=== PATIENT | female | born 1990 | race Caucasian/White ===

== ENCOUNTER 2018-11-03 19:02 | Observation (INO) | payer BC, SELFPAY ==
[2018-11-03 19:04] VITALS: BP 158/109; PULSE 101; RESP 18; O2SAT 100; BMI 28.1
--- NOTE | 2018-11-03 20:23 | ED.ABDPAIN ---
HPI - Abdominal Pain General Chief Complaint: Abdominal Pain Stated Complaint: lower abd/pelvic pain Time Seen by Provider: 11/03/18 20:23 Source: patient Mode of arrival: ambulatory Limitations: no limitations History of Present Illness HPI narrative: Patient is a 27-year-old female here for evaluation of bilateral lower abdominal pain. at the end of last month the patient had very similar symptoms and was seen at an outside facility. She stated that she had an ultrasound and a CT scan performed and was diagnosed with a right-sided ovarian cyst. She did have a copy of the visit report I was able to review the ultrasound which showed that the right ovary was 5.4 x 4.6 x 3.7 cm. It did have an adjacent cystic structure that was 3.8 x 3.6 x 3.0 cm. It was felt that this was a hemorrhagic cyst. Patient states that her symptoms did improve after that visit. She states that over the past couple days she had return of the symptoms. she does not have a primary care doctor. 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 Related Data Home Medications Medication Instructions Recorded Confirmed No Known Home Medications 11/04/18 11/04/18 Allergies Allergy/AdvReac Type Severity Reaction Status Date / Time No Known Drug Allergies Allergy Verified 11/03/18 19:03 Review of Systems Constitutional Denies fever(s) Cardiovascular Denies chest pain and Denies dyspnea Respiratory Denies dyspnea Gastrointestinal Gastrointestinal: Reports abdominal pain, Denies change in stool character, Reports nausea and Denies vomiting Genitourinary Denies dysuria and Denies vaginal discharge Musculoskeletal Denies myalgias and Denies arthralgias Integumentary/Breasts Denies rash Neurologic Denies behavioral changes Psychiatric Denies behavioral changes Hematologic/Lymphatic Denies easy bleeding and Denies easy bruising [facility] Medical History Ovarian cyst (Acute) Social History Smoking Status: Never smoker Social History Smoking Status: Never smoker Exam Initial Vital Signs Initial Vital Signs: Vital Signs Pulse Rate 101 H 11/03/18 19:04 Respiratory Rate 18 11/03/18 19:04 Blood Pressure 158/109 H 11/03/18 19:04 Pulse Oximetry 100 04/25/19 19:04 Const General: cooperative, comfortable, well developed, well groomed and No acute distress Orientation: alert, awake and oriented x3 HENMT Head: normal to inspection and normocephalic Resp Effort & Inspection: normal respiratory effort Auscultation: clear to auscultation bilaterally Cardio Rate: regular rate Rhythm: regular rhythm GI Inspection: non-distended Palpation: soft, No firm and tender (Bilateral lower abdomen left greater than right discomfort with some guardi) Back/Spine/Pelvis Back: No CVA tenderness Skin Lesions: no lesions Rashes: no rashes Neuro General: alert, awake and oriented x3 Cognition: normal cognition Speech: speech normal Extrem General: normal to inspection and capillary refill normal Psych Appearance: grossly normal and well kempt Course Orders Ordered: ED Orders 11/03/18 20:44 US pelvic complete Stat 11/03/18 22:32 Urine Culture Stat Urine Microscopic Stat 11/03/18 23:46 Consult to Physician Routine 11/03/18 23:50 Basic Metabolic Panel Stat Complete Blood Count AUTO DIFF Stat Sodium Chloride (Normal Saline 0.9%) 1,000 mls @ 125 mls/hr IV CONT LARRY Last Infusion: 11/04/18 00:55 Dose: 125 mls/hr Infusion: 11/04/18 00:35 Dose: 125 mls/hr Admin: 11/04/18 00:04 Dose: 125 mls/hr Morphine Sulfate (Morphine) 2 mg IV Q4HR PRN PRN Reason: Pain, Mild (1-3) Ondansetron HCl (Zofran) 4 mg IV Q4HR PRN PRN Reason: Nausea And Vomiting Discontinued Medications Hydrocodone Bitart/Acetaminophen ([place] 5/325) 1 tab PO NOW ONE Stop: 11/03/18 20:44 Last Admin: 11/03/18 20:54 Dose: 1 tab Vital Signs - 8 hr 11/03/18 19:04 11/03/18 22:23 11/03/18 23:26 Pulse Rate 101 H 88 82 Respiratory Rate 18 18 18 Blood Pressure 158/109 H Blood Pressure [Left Arm] 141/98 H 139/96 H Pulse Oximetry 100 100 100 MDM - Abdominal Pain Lab Data Attestation: I reviewed the patient's lab results. Result diagrams: 11/03/18 23:50 11/03/18 23:50 Lab Results 11/03/18 11/03/18 11/03/18 Range/Units 22:32 23:50 23:50 WBC 11.5 H (4.5-11.0) X10^3/uL RBC 4.08 (4.0-5.2) X10^6/uL Hgb 12.0 (12.0-16.0) g/dL Hct 36.1 (36-46) % MCV 88.5 (80-100) fL MCH 29.5 (26-34) PG MCHC 33.3 (30-36) % RDW 14.0 (11.6-14.8) % Plt Count 271 (150-400) X10^3/uL Neut % (Auto) 87.5 H (50-75) % Lymph % (Auto) 7.6 L (25-40) % Dickenson % (Auto) 4.5 (3-14) % Eos % (Auto) 0.1 L (2-4) % Baso % (Auto) 0.3 (0-2) % Neut # (Auto) 87987 H (3795-1653) /uL Lymph # (Auto) 900 L (9788-1482) /uL Dickenson # (Auto) 500 (0-900) /uL Eos # (Auto) 0 (0-450) /uL Baso # (Auto) 0 (0-100) /uL Sodium 138 (137-145) mmol/L Potassium 3.7 (3.4-5.1) mmol/L Chloride 101 (98-107) mmol/L Carbon Dioxide 25 (22-32) mmol/L BUN 10 (7-17) mg/dL Creatinine 0.70 (0.52-1.04) mg/dL Estimated GFR > 60.0 (>60) mL/min BUN/Creatinine Ratio 14.3 (6-22) Glucose 135 H (70-100) mg/dL Calcium 9.1 (8.4-10.2) mg/dL Urine RBC >100/hpf H (0-5/HPF) Urine WBC 0-1/hpf (0-5/HPF) Ur Squamous Epith Cells 1-5 /hpf (0-5/HPF) Urine Bacteria Few (2-10) H (None) Ur Culture Indicated? Specimen cultured Imaging Data US - abdomen: Radiologist's impression: Enlarged heterogeneous complex right ovary come in question dermoid cyst. Ovarian torsion resulting in enlargement and hemorrhage could have similar appearance. Large amount of free fluid and probable hemorrhagic fluid in the pelvis. [facility] Narrative Medical decision making narrative: Patient is relatively symptom-free with lying still on the bed however does have discomfort with palpation. She does seem to have left lower quadrant more than right lower quadrant symptoms. the patient's ultrasound today measures the right ovary at 5.5 x 4.2 x 5.5 cm. It does not distinguish between the ovary and the cyst today. The ultrasound today shows that the right ovary is heterogeneous and complex. Had a discussion with Dr. Lee who was on-call for OB. He did state that he would be happy to admit the patient for observation overnight and pain control to then be evaluated by load test mechanic in the morning. I had a discussion with the patient regarding this. Patient did agree to be admitted to the hospital. Discharge Plan Departure Patient Disposition: Admitted as Observation Clinical Impression: Abdominal pain Qualifiers: Abdominal location: lower abdomen, unspecified Qualified Code(s): R10.30 - Lower abdominal pain, unspecified Ovarian cyst Qualifiers: Laterality: right Qualified Code(s): N83.201 - Unspecified ovarian cyst, right side Discharge Date/Time: 11/04/18 00:36 Interventions: ED Discharge Assessment Last Done: 11/04/18 00:34 Admit Date/Time: 11/03/18 23:47 Admit Provider: Amadou Lee
--- NOTE | 2018-11-03 20:44 | DI.US.S_ITS ---
PROCEDURE: US PELVIC COMPLETE INDICATIONS: LEFT LOWER QUADRANT PAIN, ABDOMINAL PAIN, CONCERN FOR OVARIA TECHNIQUE: Real-time scanning was performed of the pelvic organs, with image documentation. Additional endovaginal scanning was necessary due to incomplete visualization of the adnexal and endometrial structures by transabdominal scanning. COMPARISON: None. FINDINGS: Transabdominal scanning: Limited scanning through the kidneys shows no hydronephrosis. There is a moderately large amount of echogenic free pelvic fluid extending bilaterally. Incidental note is made of a possible 5 mm stone at the inferior third of the right kidney. Endovaginal scanning: Uterus: Uterus is normal in size at 3.0 x 4.5 x 7.3 cm. The endometrium measures 4.0 mm in combined thickness. No uterine fibroids are found. Ovaries: The right ovary is enlarged at 5.5 x 4.2 x 5.5 cm, much of which appears to represent a complex cystic or solid mass with a hyperechoic internal content, with potential for hemorrhagic content or dermoid tumor as the underlying cause. The left ovary measures 1.9 x 2.7 x 2.2 cm. IMPRESSION: The findings discussed above are complex and warrants gynecological consultation. The amount and nature of the free fluid present raises concern for presence of hemoperitoneum or possibly rupture of a complex adnexal cyst/dermoid related cyst which can produce peritoneal symptoms. The patient reports having been evaluated previously at [facility] approximately 1 month ago and was told that there was a complex ovarian cyst present but images or a report from that study is not available for review. The prior study should be obtained to compare to the current examination. There is a large complex solid and cystic masslike structure the right adnexa and a normal ovary on the right cannot be located. The appearance raises concern for a large hemorrhagic ovarian cyst but the presence of a abnormality approximately one month ago at the adnexa raises concern for dermoid tumor. Ovarian torsion/dermoid tumor torsion conceivably could produce the appearance discussed above. Incidental note is made of what appears to be 5 mm nonobstructive calculus at the right kidney lower pole. Note: These findings are concordant with the preliminary interpretation which was immediately conveyed to the ordering health care provider. Dictated by: Rufino Garcia M.D. on 11/04/2018 at 8:31 Approved by: Rufino Garcia M.D. on 11/04/2018 at 8:39
[2018-11-03] MEDS: HYDROCODONE/ACET 5/325 TABLET 1 TAB PO (20:54)
[2018-11-03 22:23] VITALS: BP 141/98; PULSE 88; RESP 18; O2SAT 100
[2018-11-03 22:58] LABS: Bacteria Urine Few (2-10); Culture Indicated Urine Specimen Cultured; RBC Urine >100/HPF (0-5/HPF); Squamous Epithelial Cell Urine 1-5 /HPF (0-5/HPF); WBC Urine 0-1/HPF (0-5/HPF)
[2018-11-03 23:26] VITALS: BP 139/96; PULSE 82; RESP 18; O2SAT 100
[2018-11-04] MEDS: SODIUM CHLORIDE 0.9% 1,000 ML 125 ML IV ×2 (00:04→06:25)
[2018-11-04 00:08] LABS: Add Manual Diff / Slide Review NO; Basophils Absolute Auto 0 /uL (0-100); Basophils Percent Auto 0.3 % (0-2); Eosinophils Absolute Auto 0 /uL (0-450); Eosinophils Percent Auto 0.1 % (2-4); Hematocrit 36.1 % (36-46); Lymphocytes Absolute Auto 900 /uL (1100-4500); Lymphocytes Percent Auto 7.6 % (25-40); Mean Corpuscular HGB Conc 33.3 % (30-36); Mean Corpuscular Hemoglobin 29.5 PG (26-34); Mean Corpuscular Volume 88.5 fL (80-100); Monocytes Absolute Auto 500 /uL (0-900); Monocytes Percent Auto 4.5 % (3-14); Neutrophils Absolute Auto 10000 /uL (1500-7000); Neutrophils Percent Auto 87.5 % (50-75); Platelet Count 271 X10^3/uL (150-400); Red Blood Cell Count 4.08 X10^6/uL (4.0-5.2); White Blood Cell Count 11.5 X10^3/uL (4.5-11.0)
[2018-11-04 00:14] LABS: BUN Creatinine Ratio 14.3 (6-22); Blood Urea Nitrogen 10 mg/dL (7-17); Calcium 9.1 mg/dL (8.4-10.2); Carbon Dioxide 25 mmol/L (22-32); Chloride 101 mmol/L (98-107); Estimated Glomerular Filt Rate > 60.0 mL/min (>60); Glucose 135 mg/dL (70-100); HEMOLYSIS < 15 (0-50); Potassium 3.7 mmol/L (3.4-5.1); Sodium 138 mmol/L (137-145)
[2018-11-04 00:45] VITALS: BP 134/96; PULSE 81; RESP 16; TEMP 37.1; O2SAT 100
--- NOTE | 2018-11-04 00:53 | PC.NURSE ---
Addendum entered by Dena Ann R.N. 11/04/18 04:33: Home medication locked up in night pharmacy. 8 tabs of Vicodin and 1 tab of zofran. Tabs counted with pt and this technical writer and again with RN Coordinator Kailey. Medicated with Morphine per sep. Advised pt to call for SBA from staff for safety. Original Note: Pt arrrived from ED via stretcher. Able to self trans to bed. A/O, reports abd pain resolved with analgesics given in ED. Oriented to room and call system. NPO, Oral care set-up. Pt to be independent in room. Urine collection hat placed in toilet. Pt aware to save voids. IVF infusing from ED trans to pump and rate set per orders. Support person rooming in for the night. Pt verbalized she will call for needs.
[2018-11-04 02:33] VITALS: BMI 28.1
[2018-11-04] MEDS: MORPHINE 2 MG/ML INJ IV ×2 (02:58→06:47)
[2018-11-04 05:21] VITALS: BP 135/84; PULSE 88; RESP 16; TEMP 36.8; O2SAT 100
--- NOTE | 2018-11-04 06:45 | PM.HP.1 ---
History of Present Illness Date Patient Seen: 11/04/18 Time Patient Seen: 06:29 Chief complaint: lower abd/pelvic pain Narrative: 27-year-old female presents to the emergency department yesterday evening with lower pelvic pain left and right. Diffuse achiness. Patient states about 1 month ago she had similar pain. She is working on [facility]. She went to the urgent care there decided to leave the [place] and went down to [facility]. She was seen and evaluated had a ultrasound done there which showed a complex cyst. She was given pain medication encouraged to follow up in a few days with a physician outpatient. Which she did. At that time they revealed the ultrasound and she has reports saying that she had complex cyst and enlarged ovary. She was given a prescription for controlled to start after her next period. Her pain gradually went away. Her pain started 24 hours ago yesterday morning with the onset of her. Pain is moderate to severe. It is uncomfortable. It is diffuse in her lower pelvic area. She went to the Urgent Care on [facility] and then came off [place] and stops at [facility] and had evaluation. Evaluation in the emergency department showed normal blood testing. Ultrasound showed complex cyst of right ovary cannot rule out dermoid versus ovarian torsion. Due to patient living on [facility]. Pain and discomfort. Which was relieved easily with pain medication Emergency Room elected to admit her overnight for further gynecological evaluation. She says she has not had been having difficulty with throwing up. No nausea vomiting. Her pain is moderately well controlled this morning she has been NPO since last night. She has been given 1 dose of morphine throughout the evening she says that helps with the pain. Patient has no significant past medical history. Patient is not on any medication. She had an operation for kidney stones at a very young age. Patient has never been . Has not really had any gynecological problems. she is not allergic to anything. Patient History Medical History Ovarian cyst (Acute) Social History Smoking Status: Never smoker Family & Social History Social History: Prior Living Arrangements House Safety & Behavioral: Feels Safe in Current Yes Environment Been Physically Hurt or No Threatened By a Person Suicidal Ideation Description None Tobacco & Substance use: Smoking Status Never smoker alcohol intake frequency holiday/special occasion Substance Use Type does not use Meds Home Medications Medication Instructions Recorded Confirmed Type hydrocodone-acetaminophen [[place]] 1 tab PO PRN PRN 11/04/18 11/04/18 History Allergies Allergy/AdvReac Type Severity Reaction Status Date / Time No Known Drug Allergies Allergy Verified 11/03/18 19:03 Exam Vital Signs (past 8 hours): - 11/03/18 23:26 11/04/18 00:45 11/04/18 05:21 Temperature 98.8 F 98.3 F Pulse Rate 82 81 88 Respiratory Rate 18 16 16 Blood Pressure 134/96 H 135/84 Blood Pressure [Left Arm] 139/96 H Pulse Oximetry 100 100 100 Oxygen Delivery Method Room Air Oxygen Flow Rate 0 Narrative Exam Narrative: Gen.: Alert and oriented x3 no apparent distress. HEENT: NCAT PERRLA tympanic membranes are clear nares are patent oral mucosa is moist no tonsillar hypertrophy neck is supple without lymphadenopathy no thyroid enlargement. Cardio: S1-S2 regular rate and rhythm no murmurs appreciated. Respiratory: Lungs are clear to auscultation no wheezes or crackles normal respiratory effort. Abdomen: Soft tenderness in the lower abdominal area. Voluntary guarding. No rebound Extremities: Full range of motion no appreciable weakness no cyanosis or edema. Objective Labs Result Diagrams: 11/03/18 23:50 11/03/18 23:50 Labs: Laboratory Results - last 24 hr 11/03/18 11/03/18 11/03/18 22:32 23:50 23:50 WBC 11.5 H RBC 4.08 Hgb 12.0 Hct 36.1 MCV 88.5 MCH 29.5 MCHC 33.3 RDW 14.0 Plt Count 271 Neut % (Auto) 87.5 H Lymph % (Auto) 7.6 L [place] % (Auto) 4.5 Eos % (Auto) 0.1 L Baso % (Auto) 0.3 Neut # (Auto) 07165 H Lymph # (Auto) 900 L [place] # (Auto) 500 Eos # (Auto) 0 Baso # (Auto) 0 Sodium 138 Potassium 3.7 Chloride 101 Carbon Dioxide 25 BUN 10 Creatinine 0.70 Estimated GFR > 60.0 BUN/Creatinine Ratio 14.3 Glucose 135 H Calcium 9.1 Urine RBC >100/hpf H Urine WBC 0-1/hpf Ur Squamous Epith Cells 1-5 /hpf Urine Bacteria Few (2-10) H Ur Culture Indicated? Specimen cultured Assessment & Plan Assessment & Plan narrative: Lower diffuse abdominal pain with no rebound and some guarding ultrasound shows complex right cyst dermoid versus hemorrhagic. Cannot disclosed ovarian torsion. Patient was admitted for pain control and gynecological evaluation. Patient lives on [facility]. And did not have an evaluation until late last evening. [place] uncomfortable with sending patient home with out further evaluation workup. We will consult our gynecological service here the hospital and have them evaluate her cyst. I determine if she needs a surgical intervention. Obviously it is hemorrhagic. Due to the fluid. And may need a diagnostic laparoscopic procedure. We will keep her NPO IV fluids and pain control until this evaluation happens. Quality VTE Deep Vein Thrombosis/Pulmonary Embolism Present on Admission: No
[2018-11-04] MEDS: MORPHINE PCA 30 MG/30 ML PCA.VIAL IV (07:59)
[2018-11-04 08:05] VITALS: BP 135/83; PULSE 93; RESP 14; TEMP 37.1; O2SAT 98
[2018-11-04] MEDS: ONDANSETRON 4 MG/2 ML INJ IV (11:01)
[2018-11-04] MEDS: DOCUSATE 100 MG CAPSULE PO (11:01)
--- NOTE | 2018-11-04 11:08 | PC.NURSE ---
initial assessment completed and pt c/o pain and reported that the time interval from iv pain rx was too long- telephone call to Dr Lee and he ordered farm operations technical director- which was effective but then seen by Dr. Arnold - who feels that this is not a surgical case at this time and pt could potentially d/c later this afternoon- farm operations technical director then d/c'd as well as ivf - medicated with iv zofran x 1 and stool softeners as she c/o constipation- pt is hopeful for d/c today- taking small amounts of po-resting in bed at this time
[2018-11-04] MEDS: OXYCODONE/ACETAMINOPHEN 5/325 TABLET 2 TAB PO (12:00)
--- NOTE | 2018-11-04 12:16 | P.CONS_ITS ---
History of Present Illness Date Patient Seen: 11/04/18 Time Patient Seen: 08:00 Chief complaint: lower abd/pelvic pain Reason for consult: Ovarian mass Requesting provider: Amadou Lee Narrative: Patient with left lower quadrant abdominal pain and ultrasound showing a complex ovarian mass. The patient had pain similar 1 month ago and went to the emergency room in [place]. At that time it was thought she had a hemorrhagic cyst and was given pain medicine and sent home to start on control pills. Patient however did not start her control pills because she was told to wait till or next period started. Patient's pain resolved but now has re-occurred. The pain this time was a little bit more intense and so the patient was seen in the emergency room and admitted for pain control and observation. [facility] Medical History Ovarian cyst (Acute) Social History Smoking Status: Never smoker Social History Smoking Status: Never smoker Meds Home Medications Medication Instructions Recorded Confirmed Type hydrocodone-acetaminophen [[place]] 1 tab PO PRN PRN 11/04/18 11/04/18 History Allergies Allergy/AdvReac Type Severity Reaction Status Date / Time No Known Drug Allergies Allergy Verified 11/03/18 19:03 Review of Systems Review of Systems Patient complaining of intermittent left lower quadrant pain. She denies any nausea or vomiting. She denies any problems with chest pains or shortness of breath. She has some mild constipation from the pain medicine she is taken. She does have a history of having some pain with her menses. Exam Vital Signs (past 8 hours): - 11/04/18 05:21 11/04/18 08:05 Temperature 98.3 F 98.8 F Pulse Rate 88 93 H Respiratory Rate 16 14 Blood Pressure 135/84 135/83 Pulse Oximetry 100 98 Oxygen Delivery Method Room Air Oxygen Flow Rate 0 Narrative Exam Narrative: HEENT exam within normal limits. Lungs are clear to auscultation percussion. Heart is regular rate and rhythm no S3-S4 or murmurs. Abdomen is soft with some mild diffuse tenderness but no rebound. Pelvic exam was not performed. Extremities without edema nontender. Objective Imaging US - abdomen: Radiologist's impression: Normal uterus. Moderately large amount of free fluid in the pelvis. Right ovary 5.5 x 4.2 x 5.5 cm which there is a complex cystic or solid mass with hyperechoic internal content potential for hemorrhagic content or dermoid tumor. Left ovary measures 1.9 x 2.7 x 2.2 cm. Prior ultrasound report from [facility] suggested she had the mass simila r but a cystic structure next to it that has now gone away. Labs Result Diagrams: 11/03/18 23:50 11/03/18 23:50 Labs: Laboratory Results - last 24 hr 11/03/18 11/03/18 11/03/18 22:32 23:50 23:50 WBC 11.5 H RBC 4.08 Hgb 12.0 Hct 36.1 MCV 88.5 MCH 29.5 MCHC 33.3 RDW 14.0 Plt Count 271 Neut % (Auto) 87.5 H Lymph % (Auto) 7.6 L Stark % (Auto) 4.5 Eos % (Auto) 0.1 L Baso % (Auto) 0.3 Neut # (Auto) 31973 H Lymph # (Auto) 900 L Stark # (Auto) 500 Eos # (Auto) 0 Baso # (Auto) 0 Sodium 138 Potassium 3.7 Chloride 101 Carbon Dioxide 25 BUN 10 Creatinine 0.70 Estimated GFR > 60.0 BUN/Creatinine Ratio 14.3 Glucose 135 H Calcium 9.1 Urine RBC >100/hpf H Urine WBC 0-1/hpf Ur Squamous Epith Cells 1-5 /hpf Urine Bacteria Few (2-10) H Ur Culture Indicated? Specimen cultured Assessment & Plan (1) Ovarian cyst: Qualifiers: Laterality: right Qualified Code(s): N83.201 - Unspecified ovarian cyst, right side Current visit: Yes Status: Acute (2) Abdominal pain: Qualifiers: Abdominal location: lower abdomen, unspecified Qualified Code(s): R10.30 - Lower abdominal pain, unspecified Current visit: Yes Status: Acute Assessment & Plan narrative: Patient with acute abdominal pain, free fluid in the pelvis, complex left ovarian cyst. Discussed possible diagnosis options of the ovarian mass. This could be a resolving hemorrhagic cyst, endometrioma, a dermoid with possible intermittent torsion. Discussed laparoscopy for definitive diagnosis. Discussed that if she had a endometrioma or a dermoid they could be excised at the time of surgery. Discussed however treatment for hemorrhagic cyst would be waiting and the oral contraceptives would decrease the chance that she would have recurrence of the cystic structure. At this time there it does not appear to be a emergent need to proceed with laparoscopy if the patient wishes to wait. The patient has decided that she will take pain medication and start the control pills to see if her symptoms resolve. At any point if she wishes to pr oceed with laparoscopy she could call. She should have a repeat ultrasound in 6 weeks to confirm resolution. Time Spent With Patient Time with patient: 25 - 35 minutes
[2018-11-04 12:51] VITALS: BP 142/97; PULSE 91; RESP 16; TEMP 37.1; O2SAT 99
--- NOTE | 2018-11-04 13:08 | PC.NURSE ---
Addendum entered by Ryanne Bañuelos R.N. 11/04/18 13:12: GIVEN BOTTLED RX TO PTS SIG OTHER IN WHICH SHE SIGNED FOR- VICODIN X 8 TABS AND ZOFRAN X 1 TAB Original Note: REVIEWED PT CARE PLAN POST HOSPITALIZATION- WITH BOTH PT AND SIGNIFICANT OTHER- REMOVED IV LINES AND PREPPED FOR DISCHARGE
== END 2018-11-04 13:13 | disposition home or self-care (01) ==
LOC: ED 23:45 → AC 23:48
PROVIDERS: Admitting Provider Family Medicine; Emergency Provider Emergency Medicine; Visit Provider Family Medicine
DX: R10.30 Lower abdominal pain, unspecified (principal); N83.201 Unspecified ovarian cyst, right side
CPT/HCPCS: 36591; 76830; 76856; 80048; 81015; 85025; 87086; 96361; 96365; 96366; 96375; 99220; 99225; 99234; 99283; 99284; G0378; J2270; J2405